=== PATIENT | female | born 1955 | race Caucasian/White ===

== ENCOUNTER 2018-09-18 06:09 | Observation (INO) | payer BC, OTHER ==
[2018-09-13 11:27] VITALS: BMI 22.4
[~2018-09-18 06:09] MED LIST: BACITRACIN 50,000 UNIT, POLYMYXIN B 500,000 UNIT in SODIUM CHLORIDE 0.9% IRRIGATIO 1,00... IRRIGATION ONE; HYDROmorphone 1 MG/ML 1 ML SYRINGE IVP PRN; LACTATED RINGERS 1,000 ML IV SCH; LIDOCAINE 1% 20 ML VIAL (10MG/ML) FOR IV START INTRADERMA PRN; ONDANSETRON 4 MG/2 ML VIAL IVP ONE; ceFAZolin IN SWFI 2 GM/20 ML SYRINGE IVP ONE
[2018-09-18] MEDS ORDERED: MIDAZOLAM 2 MG/2 ML VIAL ONE (07:47)
[2018-09-18] MEDS ORDERED: SUCCINYLCHOLINE CHLORIDE 100 MG/5 ML SYR IV ONE (07:47)
[2018-09-18] MEDS ORDERED: LIDOCAINE 1% INJ 10MG/ML (20 ML MDV) ONE (07:47)
[2018-09-18] MEDS ORDERED: DEXAMETHASONE SOD PHOS (MDV) 100 MG/10 ML VIAL ONE (07:47)
[2018-09-18] MEDS ORDERED: fentaNYL (PF) 50 MCG/ML 2 ML AMP ONE (07:47)
[2018-09-18] MEDS ORDERED: PROPOFOL 10 MG/ML 20 ML VIAL IV ONE (07:47)
[2018-09-18] MEDS ORDERED: ePHEDrine SULFATE/0.9% NACL/PF 50 MG/5 ML SYRINGE IV ONE (07:47)
[2018-09-18] MEDS ORDERED: GELATIN SPONGE,ABSORB (LARGE) 1 EACH SPONGE MISCELLANE ONE ×2 (08:09→08:22)
[2018-09-18] MEDS ORDERED: BUPIVACAINE-EPI 0.5%-1:200,000 10 ML VIAL SQ ONE ×3 (08:22→08:25)
[2018-09-18] MEDS ORDERED: THROMBIN (BOVINE) 5,000 UNIT VIAL MISCELLANE ONE ×2 (08:22→08:37)
[2018-09-18] MEDS ORDERED: LACTATED RINGERS 1,000 ML IV ONE (09:22)
[2018-09-18] MEDS ORDERED: HYDROmorphone 1 MG/ML 1 ML SYRINGE IVP PRN (09:55)
[2018-09-18] MEDS ORDERED: MAGNESIUM HYDROXIDE 2,400 MG/10 ML CUP PO PRN (09:55)
[2018-09-18] MEDS ORDERED: ONDANSETRON 4 MG/2 ML VIAL IVP PRN (09:55)
[2018-09-18] MEDS ORDERED: BENZOCAINE/MENTHOL LOZENG 1 EACH LOZENGE MUCOUS MEM PRN (09:55)
--- NOTE | 2018-09-18 10:04 | P.OP ---
Date of Procedure: 09/18/18 Preoperative Diagnosis: Severe Cervical stenosis C3 4 C4 5, cervical myelopathy, degenerative disc disease C3 4 C4 5, upper extremity radiculopathy, upper extremity weakness Postoperative Diagnosis: Same Anesthesia: GETA Pathology: none sent Condition: stable Disposition: PACU Description of Procedure: BRIEF OPERATIVE NOTE Preoperative Diagnosis: Severe cervical stenosis C3 4 C4 5, cervical myelopathy , upper extremity radiculopathy, particularly weakness, degenerative disc disease Postoperative Diagnosis: Same Procedure: Anterior cervical decompression with discectomy and fusion C3 4 C4 5 Placement of interbody graft C3 4 C4 5 Application of anterior cervical plate C3 4 5 Surgeon: Dr. Ayon Logistics Engineer: Aramis MONTERO who is present throughout the entire the case persistence during positioning, dissection, exposure, visualization, and all crucial elements of the case as well as closure. Anesthesia: General anesthesia Estimated blood loss: Approximately 50 mL Complications: None apparent Components implanted: K2M [place] anterior cervical plate system with 8 screws measuring 14 mm in length and a 36 mm plate with ViKos interbody allograft bone graft and 1 mL of DBX bone putty to supplemental graft Disposition: To recovery room in good stable condition. OPERATIVE INDICATIONS The patient has had long-standing issues in their neck and upper extremities. She was found have severe stenosis at C3 4 C4 5 with disc protrusion and some evidence of myelopathy. She is having radiculopathy extremity is some subtle weakness as well. Her symptoms were worsening despite conservative care. Her imaging correlated well with her neck and upper extremity symptoms. The patient has been through conservative treatment. We discussed various treatment options including surgery, and the patient wishes to proceed with surgery We discussed the risk, patient's alternatives and benefits of surgery including but not limited to, risk of bleeding risk of infection, risk of need for further surgery, risk of decreased, loss of motion, muscle function, malunion nonunion, hardware failure, nerve damage, paralysis, heart attack, and . OPERATIVE SUMMARY After discussing all the risks, patient alternatives and benefits at length, the patient elected to proceed with surgical intervention, signed informed consent, and presented for their procedure. The patient was seen and examined in the preoperative holding area and the surgical site was marked. The patient was given antibiotics and brought to the operating room. The patient was positioned on the operating room table in a supine position being careful to pad any bony prominences and pressure points. The patient was sedated and intubated by anesthesia in standard fashion. Once the airway and C- spine were stabilized the patient's arms were padded and tucked at her side, with her shoulders gently taped. The head was placed in a donut pad with the neck in good neutral alignment and position. We were careful to maintain the patient's cervical spine and good neutral alignment and position throughout. The patient was prepped and draped in a normal standard fashion. An appropriate timeout and keystone protocol performed. We were able to proceed with the surgery. The local wound area was infiltrated with local anesthetic. An incision was made transversely approximately 2-1/2 cm over the appropriate levels at C 4. Dissection was taken down subcutaneously to the level of the platysma which was split in line with its fibers. Dissection was taken with a carotid approach, with the trachea and esophagus medial and the carotid sheath laterally. We dissected down to the anterior surface of the vertebral bodies at C3 4 and 5. Intraoperative x-ray was taken which showed a marker at the appropriate level at C4 5. With the appropriate level positively confirmed, we were able to proceed with discectomy at the appropriate levels. All of the operative levels were exposed appropriately. The patient had all their twitches back, and there was no evidence of recurrent laryngeal issue. The wound was copiously irrigated and suctioned dry as had been done periodically throughout the case. At the appropriate level/levels, first at C4 5 and then at C3 4, I established an annulotomy with an 11 blade scalpel. A discectomy was performed with a combination of pituitary rongeurs, curettes, a high-speed bur, and Kerrison rongeurs. The posterior longitudinal ligament was taken down as were any posterior osteophytes. Note was made of severe central and bilateral foraminal stenosis at both levels particularly at C3 4 5. This was remedied with the decompression and discectomy and removal of the posterior osteophytes and posterior longitudinal ligament. This gave good central and bilateral foraminal decompression. There is no evidence of any dural tear or leak. The endplates were prepared with a high-speed bur. With the endplates in good parallel position, I was able to size for the appropriate size interbody graft. The wound was irrigated and suctioned dry the graft was prepared and malleted into position. It had good alignment and position with the anterior surface flush with the anterior surface of the vertebral bodies. This was done similarly the appropriate levels. With the grafts intact, I was able to measure and contour and appropriate sized plate. The plate was positioned at the midline over the appropriate levels. Screw holes were established with a hand drill and drill guide. Screws were placed in good alignment and position with excellent bony purchase. They were seated under the locking device. The construct was checked and found to be stable. Intraoperative x-ray was taken which showed good alignment and position of the implants at the appropriate levels. There was no evidence of any dural tear or leak. Good hemostasis was maintained. The wound was copiously irrigated and suctioned dry as had been done periodically throughout the case. The platysma was closed with absorbable suture. The subcutaneous tissue was closed. The subcuticular tissue was closed with absorbable suture. The wound was cleaned and dried and dressed appropriately. A soft cervical collar was placed appropriately. The patient was woken up by anesthesia, extubated, transferred back gently to their hospital bed and brought to the recovery room in good stable condition. The patient will be admitted to the hospital for appropriate postoperative care , medical management and monitoring. We will continue to follow them closely about the postoperative course.
--- NOTE | 2018-09-18 12:08 | XR ---
Cervical spine HISTORY: Needle placement Single lateral view of the cervical spine. Endotracheal tube is present. There are overlying leads. There is a needle present at the C4-5 disc s pace. IMPRESSION: Orthopedic localization.
[2018-09-18] MEDS ORDERED: HYDROmorphone 1 MG/ML 1 ML SYRINGE IVP ONE (12:09)
--- NOTE | 2018-09-18 12:12 | XR ---
Cervical spine HISTORY: Status post anterior cervical fusion and discectomy Single lateral view of the cervical spine submitted. Endotracheal tube is in place. Patient is status post anterior cervical fusion and discectomy at C3-C 5. Intervertebral spacing blocks are present. There is near anatomic alignment, minimal anterolisthes is grade 1 C3-4 was noted on prior exam, minimal retrolisthesis grade 1 C4-5 also seen on preoperativ e exam. Cervical vertebral bodies show preserved height and bone mineralization. impression: Orthopedic follow-up as described.
[2018-09-18] MEDS: SODIUM CHLORIDE 0.9% 1,000 ML IV SCH (13:40)
[2018-09-18] MEDS: HYDROmorphone 1 MG/ML 1 ML SYRINGE IVP PRN ×2 (14:47→19:48)
[2018-09-18] MEDS: ceFAZolin IN SWFI 2 GM/20 ML SYRINGE IVP SCH (17:38)
[2018-09-18] MEDS: HYDROcodone/APAP 5-325MG 1 EACH TAB PO PRN (17:39)
[2018-09-18] MEDS ORDERED: ATORVASTATIN 40 MG TAB PO SCH (21:00)
[2018-09-18] MEDS ORDERED: DIVALPROEX 500 MG TABLET.DR PO SCH (21:00)
[2018-09-19] MEDS: SODIUM CHLORIDE 0.9% 1,000 ML IV SCH (00:45)
[2018-09-19] MEDS: HYDROcodone/APAP 5-325MG 1 EACH TAB PO PRN ×3 (00:46→11:43)
[2018-09-19] MEDS: ceFAZolin IN SWFI 2 GM/20 ML SYRINGE IVP SCH (00:46)
[2018-09-19] MEDS: HYDROmorphone 1 MG/ML 1 ML SYRINGE IVP PRN (02:06)
[2018-09-19] MEDS ORDERED: LEVOTHYROXINE 112 MCG TAB PO SCH (06:30)
[2018-09-19 07:25] VITALS: BP 88/57; PULSE 76; RESP 16; TEMP 98.1
[2018-09-19] MEDS ORDERED: ATORVASTATIN 40 MG TAB PO SCH (09:00)
[2018-09-19] MEDS ORDERED: NICOTINE 21MG/24HR PATCH TRANSDERM SCH (09:00)
[2018-09-19] MEDS ORDERED: CITALOPRAM HYDROBROMIDE 20 MG TAB PO SCH (09:00)
[2018-09-19] MEDS ORDERED: clonazePAM 0.5 MG TAB PO SCH (09:00)
[2018-09-19] MEDS ORDERED: ARIPiprazole 10 MG TAB PO SCH (09:00)
--- NOTE | 2018-09-19 09:41 | P.DS ---
Providers Date of admission: 09/19/18 03:04 Attending physician: Lucille Ayon Primary care physician: Miguel A [facility] Hospital Course: The patient presented on the day of admission as per her operative note. She went through a anterior cervical decompression with discectomy and fusion at C3 4 and C4 5 for her severe cervical stenosis with early myelopathy and upper extremity radiculopathy. She was able to do well postoperatively and has been mobile around her room. She is tolerating her soft diet adequately. She feels her arms are doing adequately Physical Exam The incision site is clean dry and intact. There is no erythema no drainage. There is no purulence no evidence of infection. Her neck is soft and supple. There is no fluid collection. Abdomen soft and nontender. Chest has good excursion with deep inspiration and expiration. The patient has active and passive range of motion intact at the upper and lower extremities. There is no acute change in neurologic status. Her upper extremities full active and passive range of motion. Hospital Course Postoperative day #1 status post anterior cervical discectomy and fusion at C3 4 and C4 5 for her severe cervical stenosis with early myelopathy and upper extremity radiculopathy. The patient has been making good progress postoperatively. They have completed the prophylactic antibiotics without any signs or symptoms of infection. The patient has been able to advance their diet, and is tolerating diet adequately. The pain was initially controlled with IV medications and is now controlled appropriately with oral medications. The patient has been able to increase their mobilization. Her neck is soft and supple does not show any evidence of wound site issues at this point. The patient has progressed appropriately. I think they are in good stable condition for discharge today. They will be sent home with appropriate prescriptions. We will give her a seven-day prescription for [place] 7.5 which has been sent. I answered their questions to the best of my ability in a language that they can understand and they are agreeable with the plan. They will follow up as directed in approximately 2 weeks or sooner if she is having problems. Patient Condition at Discharge: Good Plan - Discharge Summary Discharge Rx Participant: Yes New Discharge Prescriptions: New HYDROcodone/APAP 7.5-325MG [Bru[place] 7.5-325] 1 tab PO Q4-6H PRN #42 tab PRN Reason: Pain No Action Levothyroxine Sodium [Synthroid] 112 mcg PO DAILY Atorvastatin Calcium [Lipitor] 40 mg PO HS HYDROcodone/APAP 5-325MG [Bru[place] 5-325] 1 tab PO Q6HR PRN PRN Reason: Pain clonazePAM [KlonoPIN] 0.5 mg PO DAILY Citalopram Hydrobromide [CeleXA] 40 mg PO DAILY Divalproex Sodium [Depakote] 500 mg PO HS ARIPiprazole [Abilify] 10 mg PO DAILY Discharge Medication List Atorvastatin Calcium [Lipitor] 40 mg PO HS 07/31/16 [History] Levothyroxine Sodium [Synthroid] 112 mcg PO DAILY 07/31/16 [History] Citalopram Hydrobromide [CeleXA] 40 mg PO DAILY 09/13/18 [History] Divalproex Sodium [Depakote] 500 mg PO HS 09/13/18 [History] HYDROcodone/APAP 5-325MG [[place] 5-325] 1 tab PO Q6HR PRN 09/13/18 [History] clonazePAM [KlonoPIN] 0.5 mg PO DAILY 09/13/18 [History] ARIPiprazole [Abilify] 10 mg PO DAILY 09/19/18 [History] HYDROcodone/APAP 7.5-325MG [Bru[place] 7.5-325] 1 tab PO Q4-6H PRN #42 tab 09/19/18 [ Rx] Follow up Appointment(s)/Referral(s): Lucille Ayon DO [Doctor of Osteopathic Medicine] - 2 Weeks Patient Instructions/Handouts: Anterior Cervical Discectomy (DC) Activity/Diet/Wound Care/Special Instructions: REMOVE DRESSING ON SUNDAY, MAY SHOWER WITH DRESSING WEAR SOFT COLLAR WHEN RIDING IN CAR, OR during activity STERI-STRIPS WILL FALL OFF ON OWN, DON'T PEEL OFF NO HEAVY LIFTING OR STRENUOUS ACTIVITY May ambulate as tolerated. No overhead work. Discharge Disposition: HOME SELF-CARE
== END 2018-09-19 12:11 | disposition home or self-care (01) ==
LOC: OR 06:09 → 4SSUR 12:54 → OR 09-19 03:28
PROVIDERS: ADMIT Orthopaedic Surgery Orthopaedic Surgery of the Spine; ATTEND Orthopaedic Surgery Orthopaedic Surgery of the Spine
DX: M50.01 Cervical disc disorder with myelopathy, high cervical region (principal); M48.02 Spinal stenosis, cervical region; M50.11 Cervical disc disorder with radiculopathy, high cervical region; Z79.890 Hormone replacement therapy; Z79.899 Other long term (current) drug therapy; H91.90 Unspecified hearing loss, unspecified ear; Z83.3 Family history of diabetes mellitus; F17.200 Nicotine dependence, unspecified, uncomplicated; E78.5 Hyperlipidemia, unspecified; E03.9 Hypothyroidism, unspecified; F31.9 Bipolar disorder, unspecified; F17.210 Nicotine dependence, cigarettes, uncomplicated; Z79.891 Long term (current) use of opiate analgesic; M43.12 Spondylolisthesis, cervical region
CPT/HCPCS: 86900; 86901; 86850; 72020; 22551; 22552; 22845; 20930; G0378; C1713 ×2; C1762; S4990; J2250; J2405; J2001; J3010; J1170 ×2; J1100; J0330; J2704; J0690 ×2

== ENCOUNTER → 2019-02-28 | Outpatient (CLI) | payer OTHER ==
--- NOTE | 2019-02-28 18:55 | MR ---
EXAMINATION TYPE: MR brain wo con DATE OF EXAM: 02/28/2019 COMPARISON: None HISTORY: Benign essential tremor CONTRAST: Performed utilizing 0 mL intravenous Gadavist gadolinium contrast. TECHNIQUE: Multiplanar, multiecho imaging on a 3.0 Rena magnet is performed through the brain. Stud y is performed within 24 hours of arrival to the hospital. The craniovertebral junction is normal. The pituitary is normal. Diffusion-weighted imaging is performed. No abnormal hyperintensity is present to suggest an acute i ntracranial infarct or acute ischemic change. There are scattered punctate subcortical white matter changes present bilaterally. Punctate areas in the anterior left anant as well inversion recovery weighted sequences. These appear to be in proportio n to the patient age. Ventricles and sulci are appropriate for the patient age. There is fluid within the left mastoid air cells. Correlate for acute left mastoiditis. Mucosal thick ening is also present through the bilateral maxillary sinuses to a mild degree within the anterior et hmoid air cells. IMPRESSIONS: 1. Scattered periventricular and subcortical white matter changes not out of proportion to the patien t age. 2. Correlate for acute left mastoiditis. 3. Mild mucosal thickening is present predominantly within the maxillary sinuses.
== END | disposition home or self-care (01) ==
LOC: RADMRIMAIN 14:45
PROVIDERS: ATTEND Psychiatry & Neurology Neurology
DX: R90.89 Other abnormal findings on diagnostic imaging of central nervous system (principal); G25.0 Essential tremor
CPT/HCPCS: 70551

== ENCOUNTER → 2021-09-12 | Outpatient (CLI) | payer MEDICARE, OTHER ==
--- NOTE | 2021-09-13 14:23 | MM ---
Reason for exam: screening (asymptomatic). Last mammogram was performed 7 years and 9 months ago. History: Patient is postmenopausal. Physical Findings: A clinical breast exam by your physician is recommended on an annual basis and results should be correlated with mammographic findings. MG 3D Screening Mammo W/Cad Bilateral CC and MLO view(s) were taken. Prior study comparison: December 18, 2013, bilateral digital screening mammo w/CAD. September 04, 2006, CAD bilateral diagnostic mammogram. There are scattered fibroglandular densities. Focal asymmetry left outer CC. This finding is changed when compared with previous exams. ASSESSMENT: Incomplete: need additional imaging evaluation, BI-RAD 0 RECOMMENDATION: Special view mammogram of the left breast. If lesion persists on supplemental views, image directed ultrasound is recommended. [facility] will attempt to contact patient to return for supplemental views and ultrasound if indicated.
== END | disposition home or self-care (01) ==
LOC: RADMAMWWP 15:53
PROVIDERS: ATTEND Family Medicine
DX: Z12.31 Encounter for screening mammogram for malignant neoplasm of breast (principal); Z78.0 Asymptomatic menopausal state
CPT/HCPCS: 77063; 77067

== ENCOUNTER → 2021-09-19 | Outpatient (CLI) | payer MEDICARE, OTHER ==
--- NOTE | 2021-09-19 14:33 | MM ---
Reason for exam: additional evaluation requested from abnormal screening. Last mammogram was performed less than 1 month ago. History: Patient is postmenopausal. Physical Findings: Nurse did not find any significant physical abnormalities on exam. MG 3D Work Up W/Cad LT Spot compression CC, spot compression MLO, spot compression LM, and LM view(s) were taken of the left breast. Prior study comparison: September 12, 2021, bilateral MG 3d screening mammo w/cad. December 18, 2013, bilateral digital screening mammo w/CAD. There are scattered fibroglandular densities. There is no discrete abnormality including area of concern. No significant new findings when compared with previous films. These results were verbally communicated with the patient and result sheet given to the patient on 09/19/21. ASSESSMENT: Probably benign, BI-RAD 3 RECOMMENDATION: Follow-up diagnostic mammogram of the left breast in 6 months.
== END | disposition home or self-care (01) ==
LOC: RADMAMWWP 08:46
PROVIDERS: ATTEND Family Medicine
DX: N64.89 Other specified disorders of breast (principal); Z78.0 Asymptomatic menopausal state
CPT/HCPCS: 77065; G0279; 77061